=== PATIENT | female | born 1995 | race Caucasian/White ===

== ENCOUNTER 2017-06-29 18:44 | Emergency (ER) | payer MEDICAID, MEDICARE ==
[~2017-06-29] VITALS: Ht 167.6 cm; Wt 83.0 kg
[2017-06-29] MEDS ORDERED: IBUPROFEN 600MG TABLET PO STA (19:08)
[2017-06-29 21:10] VITALS: BP 130/77
== END 2017-06-29 21:13 | disposition home or self-care (01) ==
LOC: ER 18:44
DX: L08.9 Local infection of the skin and subcutaneous tissue, unspecified (principal); M79.645 Pain in left finger(s); M79.89 Other specified soft tissue disorders
CPT/HCPCS: 99283

== ENCOUNTER 2018-07-26 11:06 | Emergency (ER) | payer MEDICAID ==
[~2018-07-26] VITALS: Ht 170.2 cm; Wt 75.0 kg
[2018-07-26] MEDS ORDERED: IBUPROFEN 600MG TABLET PO ONE (12:00)
[2018-07-26] MEDS ORDERED: BACITRACIN ZINC OINT UDPKT TOP ONE ×2 (12:00→13:30)
[2018-07-26 13:50] VITALS: BP 128/77
== END 2018-07-26 13:51 | disposition home or self-care (01) ==
LOC: ER 11:06
DX: S90.121A Contusion of right lesser toe(s) without damage to nail, initial encounter (principal); X58.XXXA Exposure to other specified factors, initial encounter; Y93.89 Activity, other specified; Y92.89 Other specified places as the place of occurrence of the external cause; Y99.8 Other external cause status
CPT/HCPCS: 73660; 81025; 99284